=== PATIENT | male | born 1955 | race Caucasian/White ===

== ENCOUNTER 2018-02-12 09:53 | Day surgery (SDC) | payer OTHER ==
[2018-02-12] MEDS ORDERED: FENTAnyl 50 MCG/ML VIAL (11:54)
[2018-02-12] MEDS ORDERED: MIDAZOLAM 1 MG/ML 2 ML INJ ×2 (11:54)
== END 2018-02-12 11:52 | disposition home or self-care (01) ==
LOC: GIL 09:53
DX: Z12.11 Encounter for screening for malignant neoplasm of colon (principal); K29.60 Other gastritis without bleeding; K44.9 Diaphragmatic hernia without obstruction or gangrene; K64.8 Other hemorrhoids; K21.9 Gastro-esophageal reflux disease without esophagitis
CPT/HCPCS: 43239; 87081